=== PATIENT | male | born 1940 | race Caucasian/White ===

== ENCOUNTER 2019-07-15 09:45 | Emergency (ER) | payer OTHER ==
[2019-07-15 10:22] VITALS: BMI 26.6
--- NOTE | 2019-07-15 10:58 | PDOC ---
Attending Attestation - Resident Resident Name: Alondra Lehman - HPI HPI: 07/15/19 12:24 Pt presents to the ED complaining of mechanical slip and fall. Denies LOC, chest or abdominal pain. Ambulatory at the scene and in the ED. Patient hit his head on a cabinet and has a small forehead laceration. No neck pain. - Physicial Exam PE: 07/15/19 12:43 Agree with resident exam. Patient is alert and oriented and in no acute distress. + small ( 1 cm laceration to the forehead). Neuro: alert and oriented x 3, Speaking in complete sentences. - Medical Decision Making 07/15/19 12:58 Pt presents to the ED complaining of fall with a small laceration to the head. Will check CT head and cervical spine to rule out intracrainal or cervical spinal injury, repair laceration, likely discharge home if scans are negative.
--- NOTE | 2019-07-15 12:14 | PDOC ---
History of Present Illness - General Chief Complaint: Injury Stated Complaint: FALL Time Seen by Provider: 07/15/19 10:42 History Source: Patient Exam Limitations: No Limitations - History of Present Illness Initial Comments: Pt is an 79 yo M, with PMH of Parkinson's disease (L hand tremor) and prior spinal fusion, who is presenting with a forehead laceration after a fall. Pt states he slipped on the tile floor at home, falling backwards and hitting his forehead on the kitchen cabinet. Pt was able to control the bleeding with pressure. Pt went to his PMD this morning, but was sent to ER for further evaluation. Pt denies any symptoms preceding the fall, and had no LOC, nausea/ vomiting, or confusion after hitting his head. Does not take AC medication. Pt ambulates with a walker at home. Pt denies any recent fevers/chills, headache, vision changes, syncope, chest pain, palpitations, SOB, nausea/vomiting, abdominal pain, urinary symptoms, diarrhea/constipation, or leg swelling. Allergies: NKDA PCP: Dr. Margret Barbosa Social: Pt denies any cigarette, alcohol, or drug use. Pt denies any recent travel or sick contacts. Surgical: spinal fusion (T10 through sacrum), done at [facility] Family: no relevant history. 07/15/19 12:09 07/15/19 12:16 Past History - Travel Traveled outside of the country in the last 30 days: No Close contact w/someone who was outside of country & ill: No - Past Medical History Allergies/Adverse Reactions: Allergies Allergy/AdvReac Type Severity Reaction Status Date / Time No Known Allergies Allergy Verified 07/15/19 10:22 Home Medications: Ambulatory Orders Carbidopa/Levodopa [Carbidopa-Levodopa 25-100 Tab] 1.5 each PO QID 07/15/19 Magnesium Oxide [Magnesium] 500 mg PO DAILY 07/15/19 Teriparatide [Forteo] 2.4 ml SQ DAILY 07/15/19 Venlafaxine HCl [Effexor -] 225 mg PO DAILY 07/15/19 COPD: No Hypercholesterolemia: Yes Other medical history: PARKINSONS, OSTEOPOROSIS - Surgical History Abdominal Surgery: Yes (hernia) Neurologic Surgery: Yes (bilateral laminectomy) - Psycho Social/Smoking Cessation Hx Smoking History: Former smoker Have you smoked in the past 12 months: No If you are a former smoker, when did you quit?: 50 YEARS Information on smoking cessation initiated: No Hx Alcohol Use: No Drug/Substance Use Hx: No Trauma Specific PMHX - Complaint Specific PMHX Arthritis: No Back Injury: Yes Neck Injury: No Hx Sacro Iliac Joint Dysfunction: Yes Review of Systems - Review of Systems Able to Perform ROS?: Yes Is the patient limited Greek proficient: No Constitutional: Yes: Weight Stable. No: Fever, Loss of Appetite, Malaise, Weakness HEENTM: No: Blurred Vision, Recent change in vision, Ear Discharge, Nose Pain, Nose Congestion, Nose Bleeding, Throat Pain, Throat Swelling, Mouth Pain, Difficulty Swallowing Respiratory: No: Cough, Orthopnea, Shortness of Breath Cardiac (ROS): No: Chest Pain, Edema, Irregular Heart Rate, Lightheadedness, Palpitations, Syncope, Chest Tightness ABD/GI: No: Constipated, Diarrhea, Nausea, Poor Appetite, Poor Fluid Intake, Vomiting : No: Burning, Dysuria, Frequency, Flank Pain, Pain, Urgency Musculoskeletal: No: Back Pain, Joint Pain, Joint Swelling, Muscle Pain, Muscle Weakness, Neck Pain Integumentary: Yes: See HPI (laceration to L forehead). No: Bruising, Rash Neurological: Yes: Tremors (L hand). No: Headache, Numbness, Weakness, Unsteady Gait, Dizziness Psychiatric: No: Sleep Pattern Change, Change in Appetite Endocrine: No: Increased Urine, Change in Weight Hematologic/Lymphatic: No: Anemia, Blood Clots, Easy Bleeding, Easy Bruising All Other Systems: Reviewed and Negative *Physical Exam - Vital Signs Last Vital Signs Temp Pulse Resp BP Pulse Ox 97.8 F 80 20 147/84 98 07/15/19 10:09 07/15/19 10:09 07/15/19 10:09 07/15/19 10:09 07/15/19 10:09 - Physical Exam Comments: Vitals stable, pt afebrile. Pt in NAD, normal body habitus. Pt alert and oriented x3. travel cota generally intact, muscular strength and sensation intact. No midline spinal tenderness, step-offs, or crepitus. Well-healed midline incision. Resting tremor to L hand. Head normocephalic. +Laceration to L forehead ~2.5 cm, galea intact. Bleeding well-controlled. Eyes PERRLA, EOMI. Oropharynx without erythema or exudates, no LAD b/l. No nasal congestion. Hearing intact. Clear heart sounds, S1/S2, no JVD, b/l pedal edema, or heart murmur. Clear lung sounds, no respiratory distress, wheezes, crackles, or accessory muscle use. No abdominal or CVA tenderness to palpation, no rebound, no guarding. Abdomen soft, non-distended, and with normoactive bowel sounds. Skin without jaundice or rash. 07/15/19 12:16 Procedures - Laceration/Wound Repair Left Upper Anterior Face Wound Length: to 2.5 cm Wound Explored: clean, no foreign body present Wound's Depth, Shape: superficial, linear Irrigated w/ Saline: Yes Betadine Prep: Yes Anesthesia: 1% Lidocaine w/ Epi Amount of Anesthetic (ccs): 6 Wound Debrided: minimal Wound Repaired With: Sutures Suture Size/Type: 5:0 Number of Sutures: 5 Layer Closure: No Number of Deep Layer Sutures: 0 Sterile Dressing Applied: Yes Splint Applied: No Sling Applied: No ED Treatment Course - RADIOLOGY Radiology Studies Ordered: Category Date Time Status CERVICAL SPINE CT W/O CONTR [CT] Stat CT Scan 07/15/19 11:[address] WITHOUT CONTRAST [CT] Stat CT Scan 07/15/19 11:18 Ordered Medical Decision Making - Medical Decision Making Pt was seen at bedside, also will be seen by attending Dr. Saunders. Pt presenting with laceration to L forehead after a fall. No A/C medication, no LOC , no vomiting, no confusion or AMS. Will evaluate with head and C-spine CT for head bleed or fractures. No concerning precipitating features, story consistent with mechanical fall. Pt declined pain control at this time. PMD provided tetanus booster at this time. Will continue to reassess pt and monitor for symptomatic improvement. 07/15/19 12:17 CT head and C-spine negative Laceration repaired successfully (see procedure note) PT can be d/c to home with . Strict return precautions with pt understanding. 07/15/19 13:58 Discharge - Discharge Information Problems reviewed: Yes Clinical Impression/Diagnosis: Closed head injury Qualifiers: Encounter type: initial encounter Qualified Code(s): S09.90XA - Unspecified injury of head, initial encounter Condition: Improved Disposition: HOME - Admission No - Follow up/Referral Referrals: Margret Vásquez [Primary Care Provider] - - Patient Discharge Instructions Patient Printed Discharge Instructions: DI for Laceration Repair -- Simple, DI for Closed Head Injury Additional Instructions: You were seen in the ER after a fall. Your imaging was normal and we repaired your laceration with stitches. Please return to the ER in 5 days to have your sutures removed. Please keep the area clean and dry as we discussed. Please return to the ER if you have any worsening pain, loss of consciousness, inability to tolerate food or fluid, or any other concerns. You can take tylenol every 6 hours as needed for pain. - Post Discharge Activity
[2019-07-15 14:28] VITALS: BP 164/82; PULSE 82; TEMP 97.4
== END 2019-07-15 14:34 | disposition home or self-care (01) ==
LOC: JER 09:45
PROC: 0HQ1XZZ Repair Face Skin, External Approach (ICD-10-PCS; principal; 2019-07-15)
DX: S01.81XA Laceration without foreign body of other part of head, initial encounter (principal); W01.198A Fall on same level from slipping, tripping and stumbling with subsequent striking against other object, initial encounter; Y93.89 Activity, other specified; Y92.030 Kitchen in apartment as the place of occurrence of the external cause; Y99.8 Other external cause status; G20 Parkinson's disease; E78.00 Pure hypercholesterolemia, unspecified; M81.8 Other osteoporosis without current pathological fracture; Z98.1 Arthrodesis status; Z87.891 Personal history of nicotine dependence
CPT/HCPCS: 70450-TC; 72125-TC; 99284-25